=== PATIENT | male | born 1995 | race Two or more races ===

== ENCOUNTER 2020-09-29 06:12 | Emergency (ER) | payer MEDICAID ==
[~2020-09-29] VITALS: Ht 190.5 cm; Wt 100.0 kg
[2020-09-29] MEDS ORDERED: BUPR1FIL3 SL (06:20)
[2020-09-29 07:00] LABS: BASOPHILS % (AUTO) 0.3 % (0.0-2.0); EOSINOPHILS % (AUTO) 0.8 % (1.0-6.0); HEMOGLOBIN 12.9 g/dL (13.5-17.5); LYMPHOCYTES # (AUTO) 1.3 K/uL (1.0-4.8); MEAN CORPUSCULAR HEMOGLOBIN 30.6 pg (26.0-34.0); MEAN CORPUSCULAR HGB CONC 34.7 G/dL (31.0-37.0); MEAN CORPUSCULAR VOLUME 88 fL (80-100); MONOCYTES # (AUTO) 0.6 K/uL (0.1-1.0); MONOCYTES % (AUTO) 7.5 % (2.0-9.0); NEUTROPHILS # (AUTO) 5.7 K/uL (1.8-7.7); NEUTROPHILS % (AUTO) 74.4 % (40.0-70.0); PLATELET COUNT (AUTO) 238 K/uL (150-450); RED CELL DISTRIBUTION WIDTH 12.7 % (11.5-14.5)
[2020-09-29 07:30] LABS: ANION GAP 12 mmol/L (8-16); CALCIUM, TOTAL 9.3 mg/dL (8.8-10.5); CARBON DIOXIDE 25 mmol/L (22-29); CHLORIDE 106 mmol/L (98-107); CREATININE 0.96 mg/dL (0.60-1.30); GLOMERULAR FILTR. RATE CALC > 60 mL/min (>60); GLUCOSE,RANDOM 113 mg/dL (70-110); POTASSIUM 3.6 mmol/L (3.5-5.1); SODIUM SERUM 143 mmol/L (136-145); UREA NITROGEN, BLOOD 8 mg/dL (7-18)
[2020-09-29 07:37] LABS: ALANINE AMINOTRANSFERASE 23 U/L (12-78); ALBUMIN 4.4 g/dL (3.4-5.0); ALKALINE PHOSPHATASE 93 U/L (46-116); ASPARTATE AMINOTRANSFERASE 14 U/L (15-37); BILIRUBIN,TOTAL 0.4 mg/dL (0.1-1.0)
[2020-09-29 08:06] LABS: AMPHET/METH SCREEN,URINE NEGATIVE (NEGATIVE); BARBITURATE SCREEN, URINE NEGATIVE (NEGATIVE); BENZODIAZEPINES SCREEN,URINE POSITIVE (NEGATIVE); CANNABINOID SCREEN,URINE POSITIVE (NEGATIVE); COCAINE SCREEN,URINE POSITIVE (NEGATIVE); METHADONE SCREEN, URINE NEGATIVE (NEGATIVE); OPIATE SCREEN,URINE NEGATIVE (NEGATIVE)
[2020-09-29 08:07] LABS: PHENCYCLIDINE SCREEN,URINE NEGATIVE (NEGATIVE)
[2020-09-29 08:51] LABS: SALICYLATE 2.6 mg/dL (2.8-20.0)
[2020-09-29 10:14] LABS: ACETAMINOPHEN < 2 mcg/mL (10-30)
[2020-09-29 11:18] VITALS: BP 106/73
== END 2020-09-29 11:53 | disposition home or self-care (01) ==
LOC: EMS 06:15
DX: T42.4X1A Poisoning by benzodiazepines, accidental (unintentional), initial encounter (principal); T40.1X1A Poisoning by heroin, accidental (unintentional), initial encounter; Y92.89 Other specified places as the place of occurrence of the external cause
CPT/HCPCS: 36415; 71045; 80053; 80307; 85025; 93005; 99285; G0480; G0481

== ENCOUNTER 2025-06-01 00:17 | Emergency (ER) | payer MEDICAID ==
[~2025-06-01] VITALS: Ht 190.5 cm; Wt 90.9 kg
[~2025-06-01 00:17] MED LIST: BUPR1FIL3 SL
[2025-06-01 01:46] VITALS: TEMP 98.205296
[2025-06-01 04:30] VITALS: BP 114/82; PULSE 67; RESP 10; O2SAT 100
== END 2025-06-01 04:53 | disposition home or self-care (01) ==
LOC: EMS 00:18
DX: F11.20 Opioid dependence, uncomplicated (principal); Z59.01 Sheltered homelessness
CPT/HCPCS: 99285; Z7502